=== PATIENT | female | born 1995 | race Caucasian/White ===

== ENCOUNTER 2018-08-27 06:30 | Inpatient (IN) ==
[~2018-08-27 06:30] MED LIST: EPHEDRINE SULFATE INJ ONE; LR 1000 ML IV 1,000 ML IV ONE
[2018-08-27] MEDS ORDERED: D5 1/2 NS 1000 ML 1,000 ML IV ONE (06:39)
[2018-08-27] MEDS ORDERED: D5 LR 1000 ML 1,000 ML IV ONE (07:06)
[2018-08-27] MEDS ORDERED: AMPICILLIN VIAL 2 GRAM ONE (07:07)
[2018-08-27] MEDS ORDERED: D5 1/2 NS 1L W PITOCIN 20 UNITS/L 20 UNITS/1,000 ML BAG IV ONE ×2 (07:07→09:56)
[2018-08-27] MEDS ORDERED: NS 100 ML IV 100 ML IV ONE ×3 (07:07→15:00)
[2018-08-27] MEDS ORDERED: PITOCIN ONE (07:07)
[2018-08-27] MEDS ORDERED: AMPICILLIN VIAL 2 GRAM 2 G in NS 100 ML IV + SPIKE MINIBAG* 100 ML IV SCH (07:17)
[2018-08-27] MEDS ORDERED: REGLAN INJ 10 MG VIAL IVP PRN (07:17)
[2018-08-27] MEDS ORDERED: PHENERGAN INJ 25 MG IV PRN ×2 (07:17→17:48)
[2018-08-27] MEDS ORDERED: NUBAIN INJ 200 MG VIAL MULTIDOSE IVP PRN (07:17)
[2018-08-27] MEDS ORDERED: PITOCIN IVP ONE (07:17)
[2018-08-27] MEDS ORDERED: D5 1/2 NS 1000 ML 1,000 ML IV SCH (07:17)
[2018-08-27] MEDS ORDERED: MORPHINE SULFATE INJ 2 MG INJ IVP PRN (07:17)
[2018-08-27] MEDS ORDERED: D5LR 1L W PITOCIN 10 UNITS/L 10 UNITS/1,000 ML BAG IV PRN (07:17)
--- NOTE | 2018-08-27 08:00 | DR.OB ---
OB Quick Note - Assessment/Plan Assessment/Plan: L&D 08/27/18 at 7:00am S-No complaint. O-Afebrile,VSS DXK=157 with good LTV, +accel, no decel. CTX=none CVX=2cm/thick/-1/VTX AROM with light meconium. IUPC and FSE placed. A-IUP at 39 2/7 weeks for induction +GBS Rh- P-Begin pitocin induction Amnioinfusion IV ABX in labor for +GBS Anticipate
[2018-08-27] MEDS: AMPICILLIN VIAL 1 GRAM 1 G in NS 50 ML IV + SPIKE MINIBAG* 50 ML IV SCH ×3 (08:28→15:00)
[2018-08-27] MEDS ORDERED: NS 1000 ML 1,000 ML ONE (09:56)
[2018-08-27] MEDS ORDERED: AMPICILLIN VIAL 1 GRAM ONE ×2 (10:31→15:00)
[2018-08-27] MEDS ORDERED: LR 1000 ML IV 1,000 ML IV ONE (10:31)
[2018-08-27] MEDS ORDERED: XYLOCAINE-MPF 1% ONE (10:32)
[2018-08-27] MEDS ORDERED: ADRENALINE CHL INJ ONE (10:32)
[2018-08-27] MEDS ORDERED: NAROPIN EPIDURAL 0.2% + FENTANYL 90MCG 60 ML EPI ONE ×2 (10:32→16:00)
[2018-08-27] MEDS ORDERED: XYLOCAINE 1 % (PLAIN) ONE (10:32)
[2018-08-27] MEDS ORDERED: FENTANYL INJ 100 mcg ONE (11:27)
--- NOTE | 2018-08-27 12:07 | DR.OB ---
OB Quick Note - Assessment/Plan Assessment/Plan: L&D 08/27/18 at 11:55am Pitocin=18mu/min. Ampicillin S-No complaint. s/p epidural. O-Afebrile,VSS [id number]=840 with good LTV, +accel, no decel. CTX=q 1 1/2 to 2 min., about 45-55mmHg CVX=3-4cm/75%/0/VTX A-IUP at 39 2/7 weeks for induction +GBS Rh- P-Cont. pitocin induction Cont. IV ABX in labor Anticipate
[2018-08-27] MEDS ORDERED: MOTRIN TAB 800 MG PO PRN (17:48)
--- NOTE | 2018-08-27 17:48 | DR.OB ---
OB Quick Note - Assessment/Plan Assessment/Plan: Delivery Note PORTER LUGGAGE 08/27/18 at 5:36pm Patient complete and pushing. Head delivered over intact perineum. No nuchal cord. Nose and mouth bulb suctioned. Body delivered over intact perineum. Cord clamped x 2 and cut. Infant handed to attendant. Cord sent for gases. Placenta delivered spontaneously / intact / 3 vessel cord. No CVX / vaginal / perineal tears. Viable female infant, VTX/OA, wt=6'2" and 9/9, stable to NBN. Mother stable to RR. IVR=045bm.
[2018-08-27] MEDS: D5 1/2 NS 1000 ML 1,000 ML with PITOCIN 20 UNITS IV SCH ×2 (18:35)
[2018-08-27] MEDS ORDERED: MILK OF MAGNESIA PO PRN (18:37)
[2018-08-27] MEDS ORDERED: ADACEL or BOOSTRIX TDaP VACCINE IM ONE (18:37)
[2018-08-27] MEDS ORDERED: AMBIEN PO PRN (18:37)
[2018-08-27] MEDS ORDERED: HYPERRHO S/D (or RHOGAM) IM PRN (18:37)
[2018-08-27] MEDS ORDERED: DERMOPLAST SPRAY TOP PRN (18:37)
[2018-08-27] MEDS: ZANTAC PO SCH (21:39)
[2018-08-28] MEDS: D5 1/2 NS 1000 ML 1,000 ML with PITOCIN 20 UNITS IV SCH ×4 (05:36→19:31)
[2018-08-28 06:03] LABS: HEMOGLOBIN 10.7 g/dL (12.0-16.0)
[2018-08-28] MEDS: ZANTAC PO SCH ×3 (08:25→20:38)
[2018-08-28] MEDS: PRENATAL PLUS PO SCH (08:25)
[2018-08-28] MEDS: CELEXA PO SCH (08:26)
[2018-08-29] MEDS: D5 1/2 NS 1000 ML 1,000 ML with PITOCIN 20 UNITS IV SCH ×2 (06:17)
[2018-08-29] MEDS: PRENATAL PLUS PO SCH (08:39)
[2018-08-29] MEDS: CELEXA PO SCH (08:39)
[2018-08-29] MEDS: ZANTAC PO SCH (08:40)
[2018-08-29 14:14] VITALS: BP 111/59
== END 2018-08-29 12:35 | disposition home or self-care (01) | DRG 806 ==
LOC: LD 06:33 → MED/SURG 18:40
PROVIDERS: ADMIT Specialist; ATTEND Specialist
DX: Z23 Encounter for immunization; O98.311 Other infections with a predominantly sexual mode of transmission complicating pregnancy, first trimester; O99.343 Other mental disorders complicating pregnancy, third trimester; O36.0930 Maternal care for other rhesus isoimmunization, third trimester, not applicable or unspecified; Z37.0 Single live birth; O99.824 Streptococcus B carrier state complicating childbirth; Z3A.39 39 weeks gestation of pregnancy; B95.1 Streptococcus, group B, as the cause of diseases classified elsewhere; Z01.818 Encounter for other preprocedural examination
CPT/HCPCS: 36415; 59409; 80048; 80307; 81001; 85014; 85018; 85025; 86592; 86850; 86900; 86901; 90715; A4216; A4222; S0197; G0434; J0171; J0290; J2590; J3010; J3490; J7030; J7050; J7120; J7121; S5010

== ENCOUNTER 2020-08-31 06:31 | Inpatient (IN) ==
[2020-08-31] MEDS ORDERED: PITOCIN ONE (06:37)
[2020-08-31] MEDS ORDERED: D5 1/2 NS 1000 ML 1,000 ML IV ONE (06:38)
[2020-08-31] MEDS ORDERED: BETADINE SOLN ONE (06:38)
[2020-08-31] MEDS ORDERED: D5LR 1L W PITOCIN 10 UNITS/L 10 UNITS/1,000 ML BAG IV ONE (06:39)
[2020-08-31] MEDS ORDERED: D5 1/2 NS 1L W PITOCIN 20 UNITS/L 20 UNITS/1,000 ML BAG IV ONE (06:39)
[2020-08-31] MEDS ORDERED: D5 1/2 NS 1000 ML 1,000 ML IV SCH (06:48)
[2020-08-31] MEDS ORDERED: PHENERGAN INJ 25 MG IM PRN ×3 (06:48→19:27)
[2020-08-31] MEDS ORDERED: MORPHINE SULFATE INJ 2 MG INJ IVP PRN (06:48)
[2020-08-31] MEDS ORDERED: NUBAIN INJ 200 MG VIAL MULTIDOSE IVP PRN (06:48)
[2020-08-31] MEDS ORDERED: REGLAN INJ 10 MG VIAL IVP PRN ×2 (06:48→19:27)
[2020-08-31] MEDS ORDERED: D5LR 1L W PITOCIN 10 UNITS/L 10 UNITS/1,000 ML BAG IV PRN (06:48)
[2020-08-31] MEDS ORDERED: PITOCIN IVP ONE (06:48)
--- NOTE | 2020-08-31 07:09 | DR.OB ---
OB Quick Note - Assessment/Plan Assessment/Plan: L&D 08/31/20 at 7:00am S-No complaint. O-Afebrile,VSS [id number] with good LTV, +accel, no decel. CTX=none CVX=2cm/50%/-1/VTX AROM with clear fluid. IUPC and FSE placed. A-IUP at 39 2/7 weeks for induction PIH Rh- P-Begin pitocin induction F/U preeclamptic labs Anticipate
[2020-08-31 07:15] LABS: URIC ACID 4.1 mg/dL (2.6-6.0)
[2020-08-31] MEDS ORDERED: LR 1000 ML IV 1,000 ML IV ONE ×2 (08:32→11:24)
[2020-08-31] MEDS ORDERED: FENTANYL INJ 100 mcg ONE (11:24)
[2020-08-31] MEDS ORDERED: FENTANYL 2 mcg/mL-ROPIV 0.1%-NS EPIDURAL 200 ML EPI ONE (11:25)
--- NOTE | 2020-08-31 12:00 | DR.OB ---
OB Quick Note - Assessment/Plan Assessment/Plan: L&D 08/31/20 at 11:55AM Pitocin=12mu/min. S-No complaint. s/p epidural. O-Afebrile,VSS [id number] with good LTV, +accel, no decel. CTX=q 1 1/2 to 2 min., about 25-55mmHg CVX=2cm/50%/-1 A-IUP at 39 2/7 weeks for induction PIH Rh- P-Cont. pitocin induction Anticipate
[2020-08-31] MEDS ORDERED: NS IRRIGATION* 1,000 ML ONE (14:19)
[2020-08-31] MEDS ORDERED: XYLOCAINE 2% and EPINEPHRINE 1:100,000 ONE (14:40)
--- NOTE | 2020-08-31 16:53 | DR.OB ---
OB Quick Note - Assessment/Plan Assessment/Plan: L&D 08/31/20 at 4:45pm Pitocin=20mu/min. S-No complaint. O-Afebrile,VSS [id number] with good LTV, +accel, no decel. CTX=q 1 1/2 to 2 min., about 45-55mmHg CVX=5-6cm/75%/-1 A-IUP at 39 2/7 weeks for induction PIH Rh- P-Cont. pitocin induction Anticipate
[2020-08-31] MEDS ORDERED: ANCEF 1 GRAM IV PREMIX* 1 G/50 ML BAG IV ONE (17:53)
[2020-08-31] MEDS ORDERED: MOTRIN TAB 800 MG PO PRN (18:27)
--- NOTE | 2020-08-31 18:27 | DR.OB ---
OB Quick Note - Assessment/Plan Assessment/Plan: Delivery Note HAND BUFFER 08/31/20 at 6:10pm Patient complete and pushing. Head delivered over intact perineum. Nuchal cord x 1 reduced. Nose and mouth bulb suctioned. Body delivered over intact perineum. Cord clamped x 2 and cut. Compound presentation with left hand at head noted. handed to attendant. Late meconium noted. Cord sent for gases. Placenta delivered spontaneously / intact / 3 vessel cord. No CVX / vaginal / perineal tears noted. Viable male , VTX/OA, wt=7'8" and 9/10, stable to NBN. Mother stable to RR. VAH=152qh.
[2020-08-31] MEDS ORDERED: DILAUDID INJ ONE ×2 (19:26→19:42)
[2020-08-31] MEDS ORDERED: ZOFRAN INJ 4 MG VIAL IVP PRN (19:27)
[2020-08-31] MEDS ORDERED: BENADRYL INJ 50 MG VIAL IVP PRN (19:27)
[2020-08-31] MEDS: DILAUDID INJ IVP PRN ×4 (19:28→19:47)
[2020-08-31] MEDS ORDERED: ADACEL or BOOSTRIX TDaP VACCINE IM ONE (19:51)
[2020-08-31] MEDS ORDERED: HYPERRHO S/D (or RHOGAM) IM PRN (19:51)
[2020-08-31] MEDS ORDERED: MILK OF MAGNESIA PO PRN ×2 (19:51)
[2020-08-31] MEDS ORDERED: DERMOPLAST PAIN RELIEF SPRAY TOP PRN (19:51)
[2020-08-31] MEDS ORDERED: AMBIEN PO PRN ×2 (19:51)
[2020-08-31] MEDS ORDERED: MYLICON TAB 80 MG CHEW PO PRN (19:51)
[2020-08-31] MEDS: D5 1/2 NS 1000 ML 1,000 ML with PITOCIN 20 UNITS IV SCH ×2 (20:31)
[2020-08-31] MEDS: COLACE CAP 100 MG PO SCH (21:05)
[2020-08-31] MEDS: PERCOCET TAB 5/325 MG PO PRN (21:05)
[2020-09-01] MEDS: PERCOCET TAB 5/325 MG PO PRN ×3 (02:40→16:00)
[2020-09-01] MEDS: D5 1/2 NS 1000 ML 1,000 ML with PITOCIN 20 UNITS IV SCH ×4 (04:11→11:46)
[2020-09-01 05:34] LABS: HEMATOCRIT 26.2 % (36.0-47.0); HEMOGLOBIN 8.6 g/dL (12.0-16.0)
[2020-09-01] MEDS: PRENATAL PLUS PO SCH (08:34)
[2020-09-01] MEDS: PROTONIX TAB 40 MG PO SCH (08:35)
[2020-09-01] MEDS: BACTROBAN TOPICAL OINT TOP SCH ×2 (13:26→21:35)
[2020-09-01] MEDS: FERROUS GLUCONATE PO SCH (17:01)
[2020-09-01] MEDS: COLACE CAP 100 MG PO SCH (20:50)
[2020-09-02] MEDS: PERCOCET TAB 5/325 MG PO PRN (03:39)
[2020-09-02] MEDS: BACTROBAN TOPICAL OINT TOP SCH (05:08)
[2020-09-02] MEDS: FERROUS GLUCONATE PO SCH (06:10)
[2020-09-02] MEDS: PRENATAL PLUS PO SCH (08:14)
[2020-09-02] MEDS: PROTONIX TAB 40 MG PO SCH (08:14)
[2020-09-02 08:20] VITALS: BP 123/84
== END 2020-09-02 09:01 | disposition home or self-care (01) | DRG 798 ==
LOC: LD 06:31 → MED/SURG 19:52
PROVIDERS: ADMIT Specialist; ATTEND Specialist
DX: Z30.2 Encounter for sterilization; O99.891 Other specified diseases and conditions complicating pregnancy; O13.3 Gestational [pregnancy-induced] hypertension without significant proteinuria, third trimester; D50.8 Other iron deficiency anemias; Z3A.39 39 weeks gestation of pregnancy; Z01.812 Encounter for preprocedural laboratory examination; O99.613 Diseases of the digestive system complicating pregnancy, third trimester; Z37.0 Single live birth